=== PATIENT | female | born 1970 | race Caucasian/White ===

== ENCOUNTER 2021-07-09 19:49 | Emergency (ER) | payer OTHER ==
[~2021-07-09] VITALS: Ht 165.1 cm; Wt 56.7 kg
--- NOTE | 2021-07-09 20:22 | NUR ---
Dr truong at bedside, MSE in progress.
[2021-07-09 21:37] LABS: HEMATOCRIT 33.3 % (31.2-41.9); MEAN CORPUSCULAR HEMOGLOBIN 20.7 uug (24.7-32.8); MEAN CORPUSCULAR VOLUME 62.2 fL (75.5-95.3); PLATELET COUNT (AUTO) 230 K/uL (179-408)
[2021-07-09 21:48] LABS: *BILIRUBIN,URIN NEGATIVE (NEGATIVE); *BLOOD, URINE 3+ (NEGATIVE); *CLARITY,URINE CLEAR (CLEAR); *COLOR,URINE YELLOW (YELLOW); *KETONES,URINE 4+ (NEGATIVE); CREATININE 0.9 mg/dL (0.6-1.3); LEUKOCYTE ESTERASE ,URINE NEGATIVE (NEGATIVE); NITRITE, URINE NEGATIVE (NEGATIVE); POTASSIUM 3.3 mmol/L (3.5-5.1); UGLUCOSE NEGATIVE (NEGATIVE)
[2021-07-09 21:53] LABS: BILIRUBIN,DIRECT 0.2 mg/dL (0.0-0.2); BILIRUBIN,TOTAL 1.2 mg/dL (0.2-1.0); TOTAL PROTEIN, SERUM 7.6 g/dL (6.4-8.2)
[2021-07-09 22:00] LABS: *URINE HCG, QUAL NEGATIVE (NEGATIVE); BACTERIA,URINE NONE SEEN /HPF (NONE SEEN); RBC,URINE TNTC /HPF (0-3); SQUAMOUS EPITHELIAL CELL,UR FEW /HPF (NONE SEEN); WBC,URINE 0-3 /HPF (0-3)
[2021-07-09] MEDS ORDERED: HYDR-4209 PO (22:48)
[2021-07-09] MEDS ORDERED: DICY20TA11 PO (22:48)
--- NOTE | 2021-07-09 23:15 | NUR ---
Patient discharged to home in stable condition. Written and verbal after care instructions given. Patient verbalizes understanding of instructions. Stressed follow up or return to ER for worsening s/s. pt ambulated with stady gait. denies pain.
[2021-07-09 23:25] VITALS: BP 125/100
== END 2021-07-09 23:17 | disposition home or self-care (01) ==
LOC: ER 19:51
DX: R10.2 Pelvic and perineal pain (principal); R31.29 Other microscopic hematuria; D25.9 Leiomyoma of uterus, unspecified; Z86.69 Personal history of other diseases of the nervous system and sense organs; R03.0 Elevated blood-pressure reading, without diagnosis of hypertension; R10.31 Right lower quadrant pain
CPT/HCPCS: 36415; 76856; 83690; 84703; 85025; 85730; A4663

== ENCOUNTER 2024-03-11 09:50 | Emergency (ER) | payer OTHER ==
[~2024-03-11] VITALS: Ht 162.6 cm; Wt 56.7 kg
[~2024-03-11 09:50] MED LIST: DICY20TA11 PO; HYDR-4209 PO
[2024-03-11 10:51] VITALS: BP 133/89; O2SAT 99
== END 2024-03-11 10:52 | disposition home or self-care (01) ==
LOC: ER 09:58
DX: R21 Rash and other nonspecific skin eruption (principal); T78.40XA Allergy, unspecified, initial encounter; X58.XXXA Exposure to other specified factors, initial encounter; Y93.89 Activity, other specified; Y92.89 Other specified places as the place of occurrence of the external cause; Y99.8 Other external cause status
CPT/HCPCS: A4606; A4663